=== PATIENT | male | born 1985 | race Caucasian/White ===

== ENCOUNTER → 2020-08-26 | Day surgery (SDC) | payer OTHER ==
[2020-08-25 14:19] LABS: BASOPHILS % (AUTO) 0.4 % (0.0-2.0); EOSINOPHILS % (AUTO) 2.2 % (1.0-6.0); HEMATOCRIT 42.3 % (41-53); HEMOGLOBIN 14.1 g/dL (13.5-17.5); LYMPHOCYTES # (AUTO) 2.4 K/uL (1.0-4.8); LYMPHOCYTES % (AUTO) 27.9 % (22.0-44.0); MEAN CORPUSCULAR HEMOGLOBIN 26.8 pg (26.0-34.0); MEAN CORPUSCULAR HGB CONC 33.4 G/dL (31.0-37.0); MEAN CORPUSCULAR VOLUME 80 fL (80-100); MONOCYTES # (AUTO) 0.6 K/uL (0.1-1.0); MONOCYTES % (AUTO) 6.3 % (2.0-9.0); NEUTROPHILS # (AUTO) 5.5 K/uL (1.8-7.7); NEUTROPHILS % (AUTO) 63.2 % (40.0-70.0); PLATELET COUNT (AUTO) 253 K/uL (150-450); RED BLOOD CELL COUNT(AUTO) 5.27 MIL/uL (4.50-5.90); RED CELL DISTRIBUTION WIDTH 13.6 % (11.5-14.5)
[2020-08-25 14:22] LABS: COVID AG,FIA SOURCE NASOPHARYNGEAL
[2020-08-25 14:28] LABS: ANION GAP 10 mmol/L (8-16); CALCIUM, TOTAL 9.2 mg/dL (8.8-10.5); CARBON DIOXIDE 27 mmol/L (22-29); CHLORIDE 104 mmol/L (98-107); CREATININE 0.96 mg/dL (0.60-1.30); GLOMERULAR FILTR. RATE CALC > 60 mL/min (>60); GLUCOSE,RANDOM 103 mg/dL (70-110); POTASSIUM 4.3 mmol/L (3.5-5.1); SODIUM SERUM 141 mmol/L (136-145); UREA NITROGEN, BLOOD 12 mg/dL (7-18)
[2020-08-25 14:32] LABS: PROTHROMBIN TIME 10.4 SEC (9.4-11.6)
[2020-08-25 14:33] LABS: ALANINE AMINOTRANSFERASE 41 U/L (12-78); ALKALINE PHOSPHATASE 109 U/L (46-116); ASPARTATE AMINOTRANSFERASE 22 U/L (15-37); BILIRUBIN,TOTAL 0.2 mg/dL (0.1-1.0); TOTAL PROTEIN, SERUM 8.2 g/dL (6.4-8.2)
[~2020-08-26] VITALS: Ht 160 cm; Wt 66.3 kg
[~2020-08-26] MED LIST: BUPIVACAINE HCL/PF 0.25% 30 ML VIAL ONE; BUPIVACAINE HCL/PF 0.5% 30 ML VIAL ONE; BUPIVACAINE LIPOSOME/PF 1.3%-13.3MG/ML SUSPENSION 20 ML VIAL INJ ONE; EPINEPHrine 1:1,000 [1 MG/ML] AMP ONE; ETHYL ALCOHOL 62% ANTISEPTIC NASAL INHALANT 0.6 ML AMPUL NASAL ONE; FentaNYL CITRATE PF 100 MCG/2 ML VIAL IVP ONE; FentaNYL CITRATE PF 100 MCG/2 ML VIAL IVP PRN; GLYCOPYRROLATE 0.2 MG/ML VIAL IM ONE; HYDROmorphone 2 MG/ML VIAL IVP PRN; IOHEXOL 240 MG/ML 20 ML VIAL ONE; MEPERIDINE-PF 25 MG/ML VIAL IVP PRN; MIDAZOLAM HCL 2 MG/2 ML VIAL IVP ONE; MUPIROCIN CALCIUM 2% 22 GM OINTMENT ONE; NEOSTIGMINE METHYLSULFATE 1 MG/ML 10 ML VIAL IVP ONE; ONDANSETRON HCL 4 MG/2 ML VIAL IVP ONE; OXYGEN THERAPY IH SCH; PROPOFOL 1% 20 ML VIAL IVP ONE; RINGERS SOLUTION,LACTATED 1,000 ML IV ONE; ROCURONIUM BROMIDE 10 MG/ML 5 ML VIAL IVP ONE; SODIUM CL IRRIG SOLN BAG 6,000 ML IRRIG ONE
== END | disposition home or self-care (01) ==
LOC: SURGERY 05:22
PROVIDERS: ATTEND Orthopaedic Surgery
DX: S83.241A Other tear of medial meniscus, current injury, right knee, initial encounter (principal); M65.861 Other synovitis and tenosynovitis, right lower leg; X58.XXXA Exposure to other specified factors, initial encounter; Y93.89 Activity, other specified; Y92.89 Other specified places as the place of occurrence of the external cause; Y99.8 Other external cause status; Z98.890 Other specified postprocedural states; Z79.899 Other long term (current) drug therapy
CPT/HCPCS: 29876; 29881; 36415; 80053; 85025; 85610; 85730; 87426; 88304; 93005; A9575; C9290; C9803; J0171; J2250; J2405; J2704; J3010; J3490 ×4; J7120; Q9966

== ENCOUNTER 2021-07-16 12:42 | Emergency (ER) | payer MEDICAID, OTHER ==
[~2021-07-16] VITALS: Ht 157.5 cm; Wt 64.5 kg
[2021-07-16 13:08] VITALS: BP 117/61
[2021-07-16 13:36] LABS: BASOPHILS % (AUTO) 0.4 % (0.0-2.0); EOSINOPHILS % (AUTO) 1.3 % (1.0-6.0); HEMATOCRIT 45.9 % (41-53); HEMOGLOBIN 15.4 g/dL (13.5-17.5); LYMPHOCYTES # (AUTO) 3.3 K/uL (1.0-4.8); LYMPHOCYTES % (AUTO) 33.5 % (22.0-44.0); MEAN CORPUSCULAR HEMOGLOBIN 26.9 pg (26.0-34.0); MEAN CORPUSCULAR HGB CONC 33.5 G/dL (31.0-37.0); MEAN CORPUSCULAR VOLUME 81 fL (80-100); MONOCYTES # (AUTO) 0.5 K/uL (0.1-1.0); MONOCYTES % (AUTO) 5.4 % (2.0-9.0); NEUTROPHILS # (AUTO) 5.8 K/uL (1.8-7.7); NEUTROPHILS % (AUTO) 59.4 % (40.0-70.0); PLATELET COUNT (AUTO) 254 K/uL (150-450); RED CELL DISTRIBUTION WIDTH 13.7 % (11.5-14.5)
[2021-07-16 13:55] LABS: ANION GAP 11 mmol/L (8-16); CALCIUM, TOTAL 9.1 mg/dL (8.8-10.5); CARBON DIOXIDE 27 mmol/L (22-29); CHLORIDE 102 mmol/L (98-107); CREATININE 1.17 mg/dL (0.60-1.30); GLOMERULAR FILTR. RATE CALC > 60 mL/min (>60); GLUCOSE,RANDOM 115 mg/dL (70-110); POTASSIUM 4.1 mmol/L (3.5-5.1); SODIUM SERUM 140 mmol/L (136-145); UREA NITROGEN, BLOOD 20 mg/dL (7-18)
[2021-07-16 14:00] LABS: ALANINE AMINOTRANSFERASE 33 U/L (12-78); ALBUMIN 4.1 g/dL (3.4-5.0); ALKALINE PHOSPHATASE 99 U/L (46-116); ASPARTATE AMINOTRANSFERASE 44 U/L (15-37); BILIRUBIN,TOTAL 0.5 mg/dL (0.1-1.0); LIPASE 129 U/L (73-393); TOTAL PROTEIN, SERUM 8.2 g/dL (6.4-8.2)
== END 2021-07-16 15:07 | disposition home or self-care (01) ==
LOC: EMS 12:44
DX: K80.20 Calculus of gallbladder without cholecystitis without obstruction (principal); K80.50 Calculus of bile duct without cholangitis or cholecystitis without obstruction
CPT/HCPCS: 76705; 80053; 83690; 85025; 93005; 99285